=== PATIENT | male | born 1990 | race Caucasian/White ===

== ENCOUNTER 2016-07-19 09:17 | Outpatient (CLI) | payer BC ==
[~2016-07-19] VITALS: Ht 180.3 cm; Wt 86.2 kg
[~2016-07-19 09:17] MED LIST: FUROSEMIDE 20 MG/2 ML VIAL IVP ONE
== END 2016-07-19 18:48 | disposition home or self-care (01) ==
LOC: SNM 09:17
PROVIDERS: ATTEND Urology
DX: N13.30 Unspecified hydronephrosis (principal)
CPT/HCPCS: 78708; A9562; J1940